=== PATIENT | female | born 1975 | race Caucasian/White ===

== ENCOUNTER 2017-10-08 07:52 | Inpatient (IN) | payer OTHER ==
[~2017-10-08] VITALS: Ht 167.6 cm; Wt 59.0 kg
--- NOTE | 2017-10-08 08:00 | NUR ---
BB FOR ABOMINAL PAIN, 05/30, NONRADIATING, PATIENT REPORTED NAUSEA AND VOMITTING. PATIENT IS AFEBRILE. SKIN IS WARM TO TOUCH AND NON DIAPHORETIC. VSS AT THIS TIME. RAY AT BEDSIDE.
[2017-10-08] MEDS ORDERED: MORPHINE SULFATE INJ 4 MG/ML DISP.SYRIN ONE (08:16)
[2017-10-08] MEDS ORDERED: ONDANSETRON HCL/PF 4 MG/2 ML VIAL ONE ×3 (08:16→22:42)
[2017-10-08] MEDS ORDERED: ONDANSETRON HCL/PF 4 MG/2 ML VIAL IVP ONE ×2 (08:30→11:00)
[2017-10-08] MEDS ORDERED: MORPHINE SULFATE INJ 2 MG/ML DISP.SYRIN IV ONE ×2 (08:30→10:00)
[2017-10-08] MEDS ORDERED: IV NS 0.9% 1,000 ML BAG IV ONE ×2 (08:30→11:30)
[2017-10-08 08:41] LABS: BASOPHILS % (AUTO) 0.1 % (0.0-2.0); EOSINOPHILS # (AUTO) 0.2 /CMM (0.0-0.7); EOSINOPHILS % (AUTO) 2.2 % (0.0-6.0); HEMATOCRIT 41 % (33-45); HEMOGLOBIN 13.6 g/dL (11.5-14.8); LYMPHOCYTES # (AUTO) 0.4 /CMM (0.8-4.8); LYMPHOCYTES % (AUTO) 4.3 % (20.0-44.0); MEAN CORPUSCULAR HEMOGLOBIN 31 PG (26.0-33.0); MEAN CORPUSCULAR HGB CONC 33 g/dl (31.0-36.0); MEAN CORPUSCULAR VOLUME 94 fL (82-100); MONOCYTES # (AUTO) 0.4 /CMM (0.1-1.30); MONOCYTES % (AUTO) 4.7 % (2.0-12.0); NEUTROPHILS # (AUTO) 8.2 /CMM (1.8-8.9); NEUTROPHILS % (AUTO) 88.7 % (43.0-81.0); PLATELET COUNT (AUTO) 209 /CMM (150-450); RDW COEFFICIENT OF VARIATION 12.4 (11.5-15.0); RED BLOOD CELL COUNT(AUTO) 4.41 MIL/uL (4.0-5.2); WHITE BLOOD COUNT (AUTO) 9.3 K/uL (4.3-11.0)
[2017-10-08 08:52] LABS: CREATININE 0.8 mg/dL (0.6-1.3); POTASSIUM 3.8 mmol/L (3.5-5.1)
[2017-10-08 09:05] LABS: ALBUMIN 4.2 g/dL (3.4-5.0); BILIRUBIN,DIRECT 0.1 mg/dL (0.0-0.2); BILIRUBIN,TOTAL 0.3 mg/dL (0.2-1.0); TOTAL PROTEIN, SERUM 7.5 g/dL (6.4-8.2)
[2017-10-08 09:27] LABS: APPEARANCE,URINE Clear (CLEAR); BILIRUBIN,URINE SMALL (NEGATIVE); BLOOD, URINE Small Ery/uL (NEGATIVE); COLOR,URINE Yellow (YELLOW); KETONES,URINE 80 (NEGATIVE); LEUKOCYTE ESTERASE ,URINE Negative (NEGATIVE); NITRITE, URINE Negative (NEGATIVE); PH,URINE 5.5 (5.0-8.0); PROTEIN,URINE Negative (NEGATIVE); UGLUCOSE Negative (NEGATIVE); UROBILINOGEN,URINE 0.2 EU/dL (0.2)
[2017-10-08 09:37] LABS: BACTERIA,URINE Few /HPF (None Seen); SQUAMOUS EPITHELIAL CELL,UR Few /HPF (None Seen)
[2017-10-08] MEDS ORDERED: MORPHINE SULFATE INJ 2 MG/ML DISP.SYRIN ONE (09:52)
--- NOTE | 2017-10-08 09:55 | NUR ---
PATIENT WAS TAKEN TO CT
[2017-10-08] MEDS ORDERED: IOHEXOL-300 100 ML VIAL IV ONE (09:57)
[2017-10-08] MEDS ORDERED: IV NS 0.9% 250 ML IV ONE (09:57)
--- NOTE | 2017-10-08 10:41 | NUR ---
SURGERY ON-CALL, DR RAIN CALLED FOR CONSULT
--- NOTE | 2017-10-08 10:45 | NUR ---
PANEL ON-CALL PAGED
[2017-10-08] MEDS ORDERED: CEFOXITIN 2 G in IV D5W 50 ML IV SCH (11:00)
--- NOTE | 2017-10-08 11:05 | NUR ---
REPORT GIVEN TO JANA BAÑUELOS FOR PJ MS [id number]
[2017-10-08] MEDS ORDERED: IV NS 0.9% 1,000 ML IV SCH (11:30)
[2017-10-08] MEDS ORDERED: MAGNESIUM HYDROXIDE 30 ML UDC PO PRN (11:30)
[2017-10-08] MEDS ORDERED: ACETAMINOPHEN 325 MG TABLET PO PRN (11:30)
[2017-10-08] MEDS ORDERED: ONDANSETRON HCL/PF 4 MG/2 ML VIAL IVP PRN (11:30)
[2017-10-08] MEDS ORDERED: MAG HYDROX/AL HYDROX/SIMETH 30 ML UDC PO PRN (11:30)
[2017-10-08] MEDS ORDERED: Z GUARD REMEDY 2 OZ OINT TP PRN (11:30)
[2017-10-08] MEDS ORDERED: ZOLPIDEM TARTRATE 5 MG TABLET PO PRN (11:30)
[2017-10-08] MEDS ORDERED: HYDROCODONE/APAP 5/325MG 1 EACH TABLET PO PRN (11:30)
--- NOTE | 2017-10-08 11:38 | NUR ---
PATIENT TRANSPORTED TO MS. VSS. NEEDS ATTENDED
[2017-10-08 11:39] LABS: PROTHROMBIN TIME 10.4 SECS (9.5-12.7)
--- NOTE | 2017-10-08 11:50 | NUR ---
RECEIVED PT FROM ER. NO SOB OR DISTRESS NOTED AT THIS TIME. PATIENT REPORTS MINIMAL, TOLERABLE PAIN. PATIENT ORIENTED TO ROOM AND CALL LIGHT. VITALS CHECKED AND RECORDED. PT SKIN INTACT, NO NEED FOR PICTURES. BED IN A LOW POSITION, CALL LIGHT WITHIN PATIENT REACH. WILL CONTINUE TO MONITOR.
--- NOTE | 2017-10-08 11:57 | NUR ---
RECEIVED CALL FROM LAB OF LACTIC ACID LEVEL OF 2.4. PT CURRENTLY RECEIVING BOLUS. CALLED DR BERGMAN VIA [facility] TO REPORT LAB VALUE. WAITING FOR RETURN CALL.
[2017-10-08 11:58] VITALS: BP 110/62
--- NOTE | 2017-10-08 12:01 | NUR ---
CALLED PHARMACY TO VERIFY MEDS THERE ARE MULTIPLE OF THE SAME ABX ORDERED. PHARMACY STATES THEY ARE WORKING ON THE ISSUE AND WILL GET THE ORDERS SORTED OUT SHORTLY. PT CURRENTLY INFUSING NS BOLUS.
[2017-10-08] MEDS ORDERED: IV NS 0.9% 1,000 ML IV PRN (12:30)
[2017-10-08] MEDS: MORPHINE SULFATE INJ 2 MG/ML DISP.SYRIN IV PRN ×2 (12:37→16:17)
[2017-10-08] MEDS ORDERED: CEFOXITIN 1 G in IV D5W 50 ML IV SCH (13:00)
[2017-10-08] MEDS ORDERED: MONT10TA22 PO (13:03)
[2017-10-08] MEDS ORDERED: TOPI100T PO (13:03)
[2017-10-08] MEDS ORDERED: FLUT9.9S NS (13:03)
[2017-10-08] MEDS ORDERED: LORA10TA68 PO (13:03)
--- NOTE | 2017-10-08 13:06 | NUR ---
SPOKE TO DR BERGMAN ABOUT PT HOME MEDS AND LACTIC ACID. STATES TO REDRAW AFTER THE FIRST LITER INFUSES AND TO RESTART HOME MEDS. WILL CARRY OUT ORDERS.
[2017-10-08] MEDS ORDERED: OXYMETAZOLINE HCL NASAL SPRAY 30 ML BOTTLE NS PRN (13:17)
[2017-10-08] MEDS: METRONIDAZOLE 500MG/ NS 100ML 500 MG in PREMIX 1 EA IV SCH ×2 (13:42→21:00)
--- NOTE | 2017-10-08 14:36 | NUR ---
RECEIVED A CALL FROM PHARMACY THAT THE PATIENT TYPE AND SCREEN HAS A POSITIVE ANTIBODY THAT WILL NEED TO BE SENT OUT TO ID SO A UNIT CAN BE PREPARED. WILL INFORM SURGEON WHEN HE COMES. Addendum: 10/08/17 at 1924 by SARMAD BACK RN RECEIVED CALL FROM LAB NOT PHARMACY
[2017-10-08 16:00] VITALS: BP 96/54
[2017-10-08] MEDS ORDERED: diphenhydrAMINE HCL 50 MG/ML VIAL IV PRN (18:00)
--- NOTE | 2017-10-08 19:22 | NUR ---
NO SIGNIFICANT CHANGES IN PATIENT CONDITION THROUGHOUT THE SHIFT. NO SOB OR DISTRESS NOTED AT THIS TIME. PATIENT REPORTS TOLERABLE PAIN. BED IN A LOW POSITION, CALL LIGHT WITHIN PATIENT REACH. REPORT GIVEN TO ART OLIVA.
--- NOTE | 2017-10-08 19:30 | NUR ---
MS RN NOTE RECEIVED PATIENT AWAKE AND ALERT IN BED. DENIES ANY PAIN OR DISCOMFORT AT THIS TIME. IV SITE INTACT, WITH NO S/S OF INFECTION NOTED. PATIENT HAS BEEN NPO SINCE YESTERDAY FOR POSSIBLE PROCEDURE. WAITING FOR TO SEE PATIENT. BED LOCKED AND IN LOWEST POSITION. SIDE RAILS UP, CALL LIGHT WITHIN REACH. WILL CONTINUE TO MONITOR.
[2017-10-08 20:00] VITALS: BP 97/64
[2017-10-08] MEDS ORDERED: CEFTRIAXONE 1 G in IV D5W 50 ML IV SCH (20:00)
--- NOTE | 2017-10-08 20:00 | NUR ---
MS RN NOTE AT BEDSIDE. EXPLAINED PROCEDURE TO PATIENT FOR A LAPAROSCOPIC APPENDECTOMY. PATIENT VERBALIZED UNDERSTANDING. CONSENT SIGNED. PATIENT STABLE. WILL CONTINUE TO MONITOR.
[2017-10-08 20:40] VITALS: BP 103/65
[2017-10-08] MEDS ORDERED: ROCURONIUM BROMIDE 50 MG/5 ML ONE (20:42)
[2017-10-08] MEDS ORDERED: FENTANYL PF 100MCG/2ML AMPUL ONE ×2 (20:42→22:41)
[2017-10-08] MEDS ORDERED: MIDAZOLAM HCL 2 MG/2ML VIAL ONE (20:42)
[2017-10-08] MEDS ORDERED: BUPIVACAINE 0.5 % PF 150 MG/30 ML VIAL ONE ×2 (20:43→21:27)
[2017-10-08] MEDS ORDERED: SCOPOLAMINE HBR 1 EA PATCH.TD72 TD ONE (20:48)
--- NOTE | 2017-10-08 21:00 | NUR ---
MS RN NOTE PATIENT LEFT FOR SURGERY IN STABLE CONDITION.
[2017-10-08 22:00] VITALS: BP 104/78
[2017-10-08] MEDS ORDERED: TOPIRAMATE 100 MG TABLET PO SCH (22:00)
[2017-10-08] MEDS ORDERED: IV LR 1000 ML 1,000 ML IV PRN (23:30)
--- NOTE | 2017-10-08 23:30 | NUR ---
MS RN NOTE PATIENT BACK FROM SURGERY IN STABLE CONDITION. 3 INCISIONS ON ABDOMEN. NO S/S OF INFECTION NOTED. NEW ORDERS RECEIVED AND CARRIED OUT. WILL CONTINUE TO MONITOR.
[2017-10-08] MEDS ORDERED: CEFAZOLIN 1 GM ONE (23:49)
[2017-10-09] MEDS ORDERED: MORPHINE SULFATE INJ 2 MG/ML DISP.SYRIN ONE ×2 (00:32→04:24)
[2017-10-09] MEDS: MORPHINE SULFATE INJ 2 MG/ML DISP.SYRIN IV PRN ×4 (00:34→13:56)
[2017-10-09] MEDS: CEFAZOLIN 1 GM in IV D5W 50 ML IV SCH ×2 (00:34→05:17)
[2017-10-09] MEDS ORDERED: CEFAZOLIN 1 GM ONE (04:04)
[2017-10-09] MEDS: METRONIDAZOLE 500MG/ NS 100ML 500 MG in PREMIX 1 EA IV SCH ×2 (04:23→12:09)
--- NOTE | 2017-10-09 06:35 | NUR ---
MS RN NOTE PATIENT RESTING COMFORTABLY. VS WNL. ALL NEEDS MET AND ATTENDED TO. IV SITE INTACT, WITH FLUIDS RUNNING ORDERED. WILL ENDORSE TO DAY SHIFT FOR PJ.
[2017-10-09 06:43] LABS: BASOPHILS % (AUTO) 0.1 % (0.0-2.0); HEMATOCRIT 33 % (33-45); LYMPHOCYTES # (AUTO) 0.4 /CMM (0.8-4.8); MEAN CORPUSCULAR HEMOGLOBIN 31 PG (26.0-33.0); MEAN CORPUSCULAR HGB CONC 33 g/dl (31.0-36.0); MEAN CORPUSCULAR VOLUME 93 fL (82-100); MONOCYTES # (AUTO) 0.2 /CMM (0.1-1.30); MONOCYTES % (AUTO) 2.3 % (2.0-12.0); NEUTROPHILS # (AUTO) 6.8 /CMM (1.8-8.9); NEUTROPHILS % (AUTO) 92.6 % (43.0-81.0); PLATELET COUNT (AUTO) 147 /CMM (150-450); RDW COEFFICIENT OF VARIATION 12.4 (11.5-15.0); RED BLOOD CELL COUNT(AUTO) 3.55 MIL/uL (4.0-5.2); WHITE BLOOD COUNT (AUTO) 7.3 K/uL (4.3-11.0)
[2017-10-09 07:02] LABS: CALCIUM, SERUM 7.6 mg/dL (8.5-10.1); CREATININE 0.7 mg/dL (0.6-1.3); MAGNESIUM 1.6 mg/dL (1.8-2.4); PHOSPHORUS 3.7 mg/dL (2.5-4.9); POTASSIUM 3.8 mmol/L (3.5-5.1)
--- NOTE | 2017-10-09 07:20 | NUR ---
PATIENT RESTING COMFORTABLY IN BED. NO SOB OR DISTRESS NOTED AT THIS TIME. PATIENT REPORTS TOLERABLE PAIN. BED IN A LOW POSITION, CALL LIGHT WITHIN PATIENT REACH.
[2017-10-09 08:00] VITALS: BP 98/63
[2017-10-09] MEDS ORDERED: DOCUSATE SODIUM 100 MG CAPSULE PO PRN (08:30)
[2017-10-09] MEDS ORDERED: FLUTICASONE PROPIONATE 16 GM BOTTLE NS SCH (09:00)
[2017-10-09] MEDS ORDERED: MONTELUKAST SODIUM (10MG) 10 MG TABLET PO SCH (09:00)
[2017-10-09] MEDS ORDERED: LORATADINE 10 MG TABLET PO SCH (09:00)
[2017-10-09] MEDS ORDERED: PANTOPRAZOLE 40 MG VIAL IV SCH (09:00)
--- NOTE | 2017-10-09 09:05 | NUR ---
CALLED DR PASCUAL'S OFFICE TO CLARIFY IF THE MD WANTED TO CONTINUE THE FLAGYL AND THUYN. LEFT A MESSAGE, WAITING FOR MD OR OFFICE TO CALL BACK.
--- NOTE | 2017-10-09 09:53 | NUR ---
DR BERGMAN ON FLOOR. STATES PT CAN SKIP THE LAST DOSES OF ABX THEY ARE NOT NEEDED AND THE PATIENT WILL BE DISCHARGED.
[2017-10-09] MEDS ORDERED: Magnesium 1GM/D5W 100ML PREMIX 100 ML IV SCH (12:00)
[2017-10-09] MEDS: Magnesium 1GM/D5W 100ML PREMIX 100 ML IV SCH ×2 (12:03→13:21)
[2017-10-09] MEDS ORDERED: ONDA4TAB5 PO (12:22)
[2017-10-09] MEDS ORDERED: HYDR-552 PO (12:22)
== END 2017-10-09 14:45 | disposition home or self-care (01) | DRG 336 ==
LOC: ER 07:54 → MEDSG2 11:15
PROVIDERS: ADMIT Internal Medicine; ATTEND Internal Medicine
PROC: 0DTJ4ZZ Resection of Appendix, Percutaneous Endoscopic Approach (ICD-10-PCS; principal; 2017-10-08 20:30)
PROC: 0UN04ZZ Release Right Ovary, Percutaneous Endoscopic Approach (ICD-10-PCS; principal; 2017-10-08 20:30)
PROC: 0DNE4ZZ Release Large Intestine, Percutaneous Endoscopic Approach (ICD-10-PCS; principal; 2017-10-08 20:30)
DX: K35.80 Unspecified acute appendicitis (principal); E87.2 Acidosis; Z88.1 Allergy status to other antibiotic agents; Z90.5 Acquired absence of kidney; Z98.890 Other specified postprocedural states; R51 Headache; N83.201 Unspecified ovarian cyst, right side
CPT/HCPCS: 36415; 71010-TC; 80048-TC; 80076-TC; 81000-TC; 83605-TC; 83690-TC; 83735-TC; 84100-TC; 84703-TC; 85025-TC; 85730-TC; 86850-TC; 87040-TC; 87086-TC; 88304-TC; 88305-TC; A4216; A4606; C9113; J0690; J0694; J0696; J1100; J1200; J1885; J2250; J2270; J2405; J2704; J2710; J3010; J3475; J3490; J7030; J7050; J7060; J7120; Q9967; Z7610

== ENCOUNTER 2017-10-09 22:54 | Inpatient (IN) | payer OTHER ==
[~2017-10-09] VITALS: Ht 167.6 cm; Wt 65.3 kg
[~2017-10-09 22:54] MED LIST: FLUT9.9S NS; HYDR-552 PO; LORA10TA68 PO; MONT10TA22 PO; ONDA4TAB5 PO; TOPI100T PO
[2017-10-09] MEDS ORDERED: MORPHINE SULFATE INJ 2 MG/ML DISP.SYRIN IV ONE (23:00)
[2017-10-09] MEDS ORDERED: ONDANSETRON HCL/PF 4 MG/2 ML VIAL IVP ONE (23:00)
[2017-10-09] MEDS ORDERED: IV NS 0.9% 1,000 ML BAG IV ONE (23:00)
--- NOTE | 2017-10-09 23:00 | NUR ---
TO BED 5 AMBULATORY C/O ABDOMINAL PAIN S/P APPENDECTOMY 10/08/17. PT AAOX4 NO ACUTE DISTRESS NOTED, RESP EVEN AND UNLABORED. ER MD AT BEDSIDE TO EVAL PT WITH ORDERS RECEIVED. STARTED SL 20G TO LAC, BLOOD DRAWN AND SENT TO LAB.
[2017-10-09] MEDS ORDERED: ONDANSETRON HCL/PF 4 MG/2 ML VIAL ONE (23:05)
[2017-10-09] MEDS ORDERED: MORPHINE SULFATE INJ 4 MG/ML DISP.SYRIN ONE (23:05)
--- NOTE | 2017-10-09 23:09 | NUR ---
RN AT BEDSIDE TO MEDICATE PT.
[2017-10-09 23:20] LABS: BASOPHILS % (AUTO) 0.3 % (0.0-2.0); EOSINOPHILS # (AUTO) 0.3 /CMM (0.0-0.7); EOSINOPHILS % (AUTO) 4.2 % (0.0-6.0); HEMATOCRIT 35 % (33-45); HEMOGLOBIN 11.6 g/dL (11.5-14.8); LYMPHOCYTES # (AUTO) 0.8 /CMM (0.8-4.8); LYMPHOCYTES % (AUTO) 10.5 % (20.0-44.0); MEAN CORPUSCULAR HEMOGLOBIN 31 PG (26.0-33.0); MEAN CORPUSCULAR HGB CONC 34 g/dl (31.0-36.0); MEAN CORPUSCULAR VOLUME 93 fL (82-100); MONOCYTES # (AUTO) 0.6 /CMM (0.1-1.30); MONOCYTES % (AUTO) 7.1 % (2.0-12.0); NEUTROPHILS % (AUTO) 77.9 % (43.0-81.0); PLATELET COUNT (AUTO) 190 /CMM (150-450); RDW COEFFICIENT OF VARIATION 12.7 (11.5-15.0); WHITE BLOOD COUNT (AUTO) 7.7 K/uL (4.3-11.0)
[2017-10-09 23:31] LABS: CALCIUM, SERUM 8.2 mg/dL (8.5-10.1); POTASSIUM 3.3 mmol/L (3.5-5.1)
[2017-10-09 23:36] LABS: PROTHROMBIN TIME 10.4 SECS (9.5-12.7)
[2017-10-09 23:37] LABS: ALBUMIN 3.4 g/dL (3.4-5.0); BILIRUBIN,TOTAL 0.2 mg/dL (0.2-1.0); TOTAL PROTEIN, SERUM 6.4 g/dL (6.4-8.2)
--- NOTE | 2017-10-09 23:43 | NUR ---
PT STILL C/O ABDOMINAL PAIN 04/29. ER MD MADE AWARE WITH ORDERS RECEIVED. RN TO MEDICATE PT.
[2017-10-10] MEDS ORDERED: HYDROMORPHONE 1 MG/1 ML DISP.SYRIN IV ONE
[2017-10-10] MEDS ORDERED: HYDROMORPHONE INJ 2 MG/ML DISP.SYRIN ONE ×3 (00:01→06:33)
--- NOTE | 2017-10-10 00:04 | NUR ---
CARO QUARLES SPOKE TO DR. HOSKINS REGARDING PT ADMISSION.
--- NOTE | 2017-10-10 00:08 | NUR ---
DR. GATO LOWE AT BEDSIDE TO [place] PT.
--- NOTE | 2017-10-10 00:10 | NUR ---
DILAUDID 1mg ADMINISTERED IVP ORDERED. HAD TO OBTAIN MED FROM [facility]; NO DILAUDID IN ER OMNICELL. DILAUDID 2mg ORDER DC'D.
--- NOTE | 2017-10-10 00:20 | NUR ---
SIMRAN FORD AT BEDSIDE.
--- NOTE | 2017-10-10 00:21 | NUR ---
M/S 110
--- NOTE | 2017-10-10 00:24 | NUR ---
REPORT CALLED TO M/S JANA BOURGEOIS. PENDING HOSPITAL ADMISSION.
--- NOTE | 2017-10-10 01:05 | NUR ---
RN OPENING NOTES: RECEIVED AND ADMITTED A MED SURG PATIENT FROM ER VIA [facility]; AWAKE AND ALERT NOT IN APPARENT DISTRESS ON ROOM AIR. IV ACCESS ON LAC G20 INTACT AND PATENT KEPT SL AT THIS TIME. PATIENT VERBALIZED HER PAIN LEVEL HAS BEEN BETTER RATED AT A 2/10. DENIES SKIN ISSUES, NOTED WITH 3 LAP SITES ON ABDOMEN , CLEAN AND INTACT WITHOUT BLEEDING NOTED. SAFETY MEASURES ENSURED. CALL LIGHT WITHIN REACH AT ALL TIMES. TO MONITOR AND MANAGE PAIN.
[2017-10-10 01:50] VITALS: BP 104/57
[2017-10-10] MEDS: HYDROMORPHONE INJ 2 MG/ML DISP.SYRIN IV PRN ×6 (02:46→23:54)
[2017-10-10 04:00] VITALS: BP 91/54
[2017-10-10] MEDS ORDERED: ONDANSETRON HCL/PF 4 MG/2 ML VIAL ONE (06:39)
[2017-10-10] MEDS: ONDANSETRON HCL/PF 4 MG/2 ML VIAL IVP PRN ×3 (06:41→20:35)
--- NOTE | 2017-10-10 06:47 | NUR ---
RN CLOSING NOTES: PATIENT WITH OCCASIONAL COMPLAINTS OF ABDOMINAL PAIN WITH DILAUDID PRN NOTED TO BE EFFECTIVE WITH PAIN MANAGEMENT PER PATIENT. ZOFRAN GIVEN WITH WITH DILAUDID DOSE. PATIENT REFUSING SCD'S AT THIS TIME. SAFETY MEASURES ENSURED. CONTINUOUSLY MONITORED, NOT IN APPARENT DISTRESS. ENDORSED TO AM SHIFT RN.
--- NOTE | 2017-10-10 07:30 | NUR ---
MS RN AM NOTES: PT IN BED, AAO X 4, ON ROOM AIR, NO SOB, RESPIRATION UNLABORED, IV ACCESS ON LAC G20 FLUSHES WELL, SITE CLEAR, RECEIVED PAIN MEDS A WHILE AGO, DENIES SKIN ISSUES, NOTED WITH 3 LAP SITES ON ABDOMEN , CLEAN AND INTACT WITHOUT BLEEDING NOTED. SAFETY MEASURES ENSURED. CALL LIGHT WITHIN REACH AT ALL TIMES. DISCUSSED POC. VERBALIZED UNDERSTANDING. WILL CONTINUE TO MONITOR AND MANAGE PAIN.
[2017-10-10 08:00] VITALS: BP 99/55
[2017-10-10] MEDS: MONTELUKAST SODIUM (10MG) 10 MG TABLET PO SCH (09:00)
[2017-10-10] MEDS: LORATADINE 10 MG TABLET PO SCH (09:00)
--- NOTE | 2017-10-10 09:30 | NUR ---
MS RN NOTES ADMINISTERED DUE MEDS.
--- NOTE | 2017-10-10 11:30 | NUR ---
MS RN NOTES SEEN BY DR. BERGMAN EARLIER. ORDERED FOR URINALYSIS. SPECIMEN COLLECTED AND SENT TO LAB.
[2017-10-10 15:50] LABS: APPEARANCE,URINE CLEAR (CLEAR); BILIRUBIN,URINE NEGATIVE (NEGATIVE); BLOOD, URINE 2+ Ery/uL (NEGATIVE); COLOR,URINE YELLOW (YELLOW); KETONES,URINE NEGATIVE (NEGATIVE); LEUKOCYTE ESTERASE ,URINE NEGATIVE (NEGATIVE); NITRITE, URINE NEGATIVE (NEGATIVE); PH,URINE 6.5 (5.0-8.0); PROTEIN,URINE NEGATIVE (NEGATIVE); UGLUCOSE NEGATIVE (NEGATIVE); UROBILINOGEN,URINE 0.2 EU/dL (0.2)
[2017-10-10 16:00] VITALS: BP 125/84
[2017-10-10 16:01] LABS: BACTERIA,URINE Rare /HPF (None Seen); SQUAMOUS EPITHELIAL CELL,UR Moderate /HPF (None Seen); WBC,URINE 0-2 /HPF (0-3)
--- NOTE | 2017-10-10 16:45 | NUR ---
Patient lives at home with spouse. She is ambulatory and independent with adl's. No dc planning needs identified at this time. will provide ride home when discharge. Addendum: 10/10/17 at 1646 by FORREST BUSTOS RN Amended: Links added.
--- NOTE | 2017-10-10 18:39 | NUR ---
MS RN CLOSING NOTES: PT IN BED, RESTING COMFORTABLY, AAO X 4, ON ROOM AIR, NO SOB, RESPIRATION UNLABORED, IV ACCESS ON LAC G20 FLUSHES WELL, SITE CLEAR, RECEIVED PAIN MEDS ORDERED, OCCASIONAL ABDOMINAL PAIN, NOTED WITH 3 LAP SITES ON ABDOMEN , CLEAN AND INTACT WITHOUT BLEEDING NOTED. SAFETY MEASURES ENSURED. CALL LIGHT WITHIN REACH AT ALL TIMES. ALL NEEDS MET, NO OTHER SIGNIFICANT CHANGE IN CONDITION. WILL ENDORSE TO NEXT SHIFT FOR PJ.
--- NOTE | 2017-10-10 19:44 | NUR ---
RN OPENING NOTE RECEIVED PATIENT IN THE BED WITH A VISITOR BY A BEDSIDE, PATIENT STATED THAT SHE IS IN PAIN 7/10, NO SOB, NO ACUTE DISTRESS NOTED, LEFT AC GAUGE 20 SITE IS INTACT, GOOD BLOOD RETURN, ADMINISTERED PAIN MED ORDERED, WILL CONTINUE TO MONITOR
[2017-10-10 20:00] VITALS: BP 115/75
[2017-10-10] MEDS: TOPIRAMATE 100 MG TABLET PO SCH (22:00)
[2017-10-10] MEDS ORDERED: PROCHLORPERAZINE EDISYLATE 10 MG/2 ML VIAL IM PRN (23:30)
[2017-10-10] MEDS ORDERED: METOCLOPRAMIDE HCL 10 MG/2 ML VIAL ONE (23:39)
[2017-10-10] MEDS: METOCLOPRAMIDE HCL 10 MG/2 ML VIAL IV PRN (23:40)
[2017-10-11] MEDS: HYDROMORPHONE INJ 2 MG/ML DISP.SYRIN IV PRN ×5 (03:38→22:11)
[2017-10-11] MEDS ORDERED: METOCLOPRAMIDE HCL 10 MG TABLET ONE (05:03)
[2017-10-11] MEDS ORDERED: METOCLOPRAMIDE HCL 10 MG/2 ML VIAL ONE (05:05)
[2017-10-11] MEDS: METOCLOPRAMIDE HCL 10 MG/2 ML VIAL IV PRN ×2 (06:47→18:35)
[2017-10-11 08:00] VITALS: BP 115/66
[2017-10-11] MEDS: HYDROCODONE/APAP 5/325MG 1 EACH TABLET PO PRN (08:03)
[2017-10-11] MEDS: MONTELUKAST SODIUM (10MG) 10 MG TABLET PO SCH (08:26)
[2017-10-11] MEDS: LORATADINE 10 MG TABLET PO SCH (08:26)
--- NOTE | 2017-10-11 09:30 | NUR ---
MS RN NOTES ADMINISTERED DUE MEDS.
[2017-10-11] MEDS: ONDANSETRON HCL/PF 4 MG/2 ML VIAL IV PRN ×3 (10:18→20:20)
[2017-10-11] MEDS: IV D5/0.45 NACL 1,000 ML IV PRN ×2 (10:22→20:20)
[2017-10-11 10:53] LABS: BASOPHILS % (AUTO) 0.3 % (0.0-2.0); EOSINOPHILS # (AUTO) 0.3 /CMM (0.0-0.7); EOSINOPHILS % (AUTO) 4.1 % (0.0-6.0); HEMATOCRIT 34 % (33-45); HEMOGLOBIN 11.4 g/dL (11.5-14.8); LYMPHOCYTES # (AUTO) 0.7 /CMM (0.8-4.8); LYMPHOCYTES % (AUTO) 12.3 % (20.0-44.0); MEAN CORPUSCULAR HEMOGLOBIN 31 PG (26.0-33.0); MEAN CORPUSCULAR HGB CONC 34 g/dl (31.0-36.0); MEAN CORPUSCULAR VOLUME 93 fL (82-100); MONOCYTES # (AUTO) 0.6 /CMM (0.1-1.30); MONOCYTES % (AUTO) 9.1 % (2.0-12.0); NEUTROPHILS # (AUTO) 4.5 /CMM (1.8-8.9); NEUTROPHILS % (AUTO) 74.2 % (43.0-81.0); PLATELET COUNT (AUTO) 189 /CMM (150-450); RDW COEFFICIENT OF VARIATION 12.3 (11.5-15.0); RED BLOOD CELL COUNT(AUTO) 3.65 MIL/uL (4.0-5.2); WHITE BLOOD COUNT (AUTO) 6.1 K/uL (4.3-11.0)
[2017-10-11 11:09] LABS: ALBUMIN 3.2 g/dL (3.4-5.0); BILIRUBIN,DIRECT 0.1 mg/dL (0.0-0.2); BILIRUBIN,TOTAL 0.3 mg/dL (0.2-1.0); CALCIUM, SERUM 8.3 mg/dL (8.5-10.1); CREATININE 0.8 mg/dL (0.6-1.3); MAGNESIUM 1.8 mg/dL (1.8-2.4); PHOSPHORUS 3.2 mg/dL (2.5-4.9); POTASSIUM 3.5 mmol/L (3.5-5.1); TOTAL PROTEIN, SERUM 6.3 g/dL (6.4-8.2)
--- NOTE | 2017-10-11 11:30 | NUR ---
MS RN NOTES SEEN BY DR. BERGMAN EARLIER. LEFT ARM IV ACCESS INFILTRATED. IV RESTARTED ON L WRIST G 22 GOOD BLOOD RETURN STARTED ON D5 1/2NS AT 100 ML/HR.
[2017-10-11] MEDS ORDERED: BISACODYL SUPP (10 MG) 10 MG/SUPP.RECT SUPP.RECT RC PRN (13:00)
[2017-10-11] MEDS ORDERED: MAGNESIUM HYDROXIDE 30 ML UDC PO PRN (13:00)
[2017-10-11] MEDS ORDERED: IV NS 0.9% 250 ML IV ONE (13:50)
[2017-10-11] MEDS ORDERED: IOHEXOL-300 100 ML VIAL IV ONE (13:50)
[2017-10-11] MEDS ORDERED: CT SWABBABLE VALVE TRANS SET 1 EA INFUS.SET MC ONE (13:50)
[2017-10-11 16:00] VITALS: BP 121/73
[2017-10-11] MEDS ORDERED: MAGNESIUM CITRATE 296 ML BOTTLE PO ONE (18:00)
--- NOTE | 2017-10-11 18:22 | NUR ---
MS RN CLOSING NOTES: PT IN BED, RESTING COMFORTABLY, AAO X 4, AT BEDSIDE, ON ROOM AIR, NO SOB, RESPIRATION UNLABORED, IV ACCESS ON L WRIST G 22 WITH D5 1/2 NS INFUSING WELL, SITE CLEAR, RECEIVED PAIN MEDS ORDERED, OCCASIONAL ABDOMINAL PAIN, NOTED WITH 3 LAP SITES ON ABDOMEN , CLEAN AND INTACT WITHOUT BLEEDING NOTED. SAFETY MEASURES ENSURED. CALL LIGHT WITHIN REACH AT ALL TIMES. ALL NEEDS MET, NO OTHER SIGNIFICANT CHANGE IN CONDITION. WILL ENDORSE TO NEXT SHIFT FOR PJ.
[2017-10-11 20:00] VITALS: BP 105/59
[2017-10-11] MEDS ORDERED: PANTOPRAZOLE 40 MG VIAL ONE (21:59)
[2017-10-11] MEDS ORDERED: HYDROMORPHONE INJ 2 MG/ML DISP.SYRIN ONE (22:07)
[2017-10-11] MEDS: PANTOPRAZOLE 40 MG VIAL IV SCH (22:10)
[2017-10-11] MEDS: TOPIRAMATE 100 MG TABLET PO SCH (22:10)
[2017-10-12] MEDS ORDERED: HYDROMORPHONE INJ 2 MG/ML DISP.SYRIN ONE ×2 (02:12→06:54)
[2017-10-12] MEDS: ONDANSETRON HCL/PF 4 MG/2 ML VIAL IV PRN ×4 (02:29→21:50)
[2017-10-12] MEDS: HYDROMORPHONE INJ 2 MG/ML DISP.SYRIN IV PRN ×6 (02:30→21:50)
[2017-10-12 04:00] VITALS: BP 107/61
[2017-10-12 06:33] LABS: BASOPHILS % (AUTO) 0.4 % (0.0-2.0); EOSINOPHILS # (AUTO) 0.3 /CMM (0.0-0.7); EOSINOPHILS % (AUTO) 7.8 % (0.0-6.0); HEMATOCRIT 33 % (33-45); HEMOGLOBIN 11.2 g/dL (11.5-14.8); LYMPHOCYTES # (AUTO) 1.2 /CMM (0.8-4.8); MEAN CORPUSCULAR HEMOGLOBIN 31 PG (26.0-33.0); MEAN CORPUSCULAR HGB CONC 34 g/dl (31.0-36.0); MEAN CORPUSCULAR VOLUME 93 fL (82-100); MONOCYTES # (AUTO) 0.5 /CMM (0.1-1.30); MONOCYTES % (AUTO) 12.4 % (2.0-12.0); NEUTROPHILS # (AUTO) 2.2 /CMM (1.8-8.9); NEUTROPHILS % (AUTO) 51.4 % (43.0-81.0); PLATELET COUNT (AUTO) 194 /CMM (150-450); RDW COEFFICIENT OF VARIATION 12.1 (11.5-15.0); RED BLOOD CELL COUNT(AUTO) 3.57 MIL/uL (4.0-5.2); WHITE BLOOD COUNT (AUTO) 4.3 K/uL (4.3-11.0)
[2017-10-12] MEDS: IV D5/0.45 NACL 1,000 ML IV PRN (06:43)
[2017-10-12 06:53] LABS: ALBUMIN 3.1 g/dL (3.4-5.0); BILIRUBIN,DIRECT 0.1 mg/dL (0.0-0.2); BILIRUBIN,TOTAL 0.3 mg/dL (0.2-1.0); CALCIUM, SERUM 8.5 mg/dL (8.5-10.1); CREATININE 0.7 mg/dL (0.6-1.3); MAGNESIUM 1.9 mg/dL (1.8-2.4); PHOSPHORUS 3.4 mg/dL (2.5-4.9); POTASSIUM 3.5 mmol/L (3.5-5.1); TOTAL PROTEIN, SERUM 6.1 g/dL (6.4-8.2)
--- NOTE | 2017-10-12 07:37 | NUR ---
MS RN NOTES RECEIVED PT ON BED WATCHING TV. A/O X 4. HEALTH TEACHING ABOUT NPO STATUS DONE.ON ROOM AIR TOLERATING WELL. IV ACCESS ON LAC G20 DEXTROSE 5 AND 1/2 NS RUNNING WELL 100ML/HR INFUSING WELL. SIDE RAILS UP. CALL LIGHT WITHIN REACH. HEAD OF BED ELEVATED. WILL CONTINUE TO MONITOR PT CLOSELY.
[2017-10-12 08:00] VITALS: BP 107/63
[2017-10-12] MEDS: LORATADINE 10 MG TABLET PO SCH (08:53)
[2017-10-12] MEDS: MONTELUKAST SODIUM (10MG) 10 MG TABLET PO SCH (08:53)
[2017-10-12] MEDS ORDERED: NA PHOS,M-B/NA PHOS,DI-BA 1 EA ENEMA RC PRN (10:00)
[2017-10-12] MEDS: METOCLOPRAMIDE HCL 10 MG/2 ML VIAL IV PRN ×2 (10:37→18:39)
--- NOTE | 2017-10-12 10:45 | NUR ---
MS BATES NOTES PT REFUSED 20MG KDUR. EXPLAINED THE RISK AND BENEFITS OF THE DRUG. Addendum: 10/12/17 at 1524 by CONNER CHAKRABORTY RN KAYY PT.
--- NOTE | 2017-10-12 15:24 | NUR ---
MS RN NOTES PT WENT FOR HIDA PROCEDURE VIA WHEELCHAIR. PT CONDITION STABLE AT THIS TIME.
[2017-10-12 16:00] VITALS: BP 136/91
--- NOTE | 2017-10-12 18:56 | NUR ---
NM; HIDA SCAN WAS COMPLETED. TECH:RB.
[2017-10-12 20:00] VITALS: BP 113/58
[2017-10-12] MEDS: PANTOPRAZOLE 40 MG VIAL IV SCH (21:49)
[2017-10-12] MEDS: TOPIRAMATE 100 MG TABLET PO SCH (22:59)
[2017-10-13] MEDS: METOCLOPRAMIDE HCL 10 MG/2 ML VIAL IV PRN ×2 (00:53→07:09)
[2017-10-13] MEDS: HYDROMORPHONE INJ 2 MG/ML DISP.SYRIN IV PRN ×3 (00:53→07:09)
[2017-10-13] MEDS: ONDANSETRON HCL/PF 4 MG/2 ML VIAL IV PRN ×2 (03:50→10:19)
[2017-10-13 04:00] VITALS: BP 108/66
--- NOTE | 2017-10-13 07:30 | NUR ---
RN MS NOTES PT IN BED, AWAKE, ALERT AND ORIENTED, STILL WITH COMPLAINT OF SLIGHT PAIN ON THE ABDOMEN, PAIN MEDICATION GIVEN BY METALWORKER NURSE, PT SEEN BY DR. ESPINOZA, CALL LIGHT WITHIN REACH, NEEDS ATTENDED.
--- NOTE | 2017-10-13 07:31 | NUR ---
RN NOTE SPOKE WITH DR ESPINOZA AND RECEIVED ORDERS TO ADVANCE DIET TO REGULAR DIET. WILL CONTACT [employer] TO GET BREAKFAST TRAY FOR PT AND ENDORSE TO AM RN.
--- NOTE | 2017-10-13 07:37 | NUR ---
RN NOTE PT REMAINS IN NO ACUTE DISTRESS IN BED. PT DID NOT HAVE ANY SIGNIFICANT CHANGE IN CONDITION DURING SHIFT. ALL NEEDS MET, ALL ORDERS CARRIED OUT. PT C/O PAIN AND NAUSEA AND DILAUDID 1MG GIVEN FOR PAIN, ZOFRAN 4MG/REGLAN 10MG GIVEN FOR NAUSEA. WILL ENDORSE CARE TO AM RN FOR CONTINUITY OF CARE.
[2017-10-13 08:00] VITALS: BP 115/69
[2017-10-13] MEDS: LORATADINE 10 MG TABLET PO SCH (08:47)
[2017-10-13] MEDS: MONTELUKAST SODIUM (10MG) 10 MG TABLET PO SCH (08:48)
[2017-10-13] MEDS: HYDROCODONE/APAP 5/325MG 1 EACH TABLET PO PRN (10:25)
--- NOTE | 2017-10-13 12:48 | NUR ---
RN MS NOTES PT AWAKE, SITTING IN BED, NOT IN DISTRESS, SEEN BY DR. BERGMAN, DISCHARGE ORDER GIVEN, DISCHARGE AND MEDICATION INSTRUCTIONS PROVIDED TO PT, VERBALIZED UNDERSTANDING, PRESCRIPTION GIVEN TO PT, BELONGINGS ACCOUNTED FOR, PICKED UP BY , LEFT IN STABLE CONDITION.
== END 2017-10-13 12:00 | disposition home or self-care (01) | DRG 445 ==
LOC: ER 22:56 → MEDSG1 10-10 00:55
DX: K80.00 Calculus of gallbladder with acute cholecystitis without obstruction (principal); E87.2 Acidosis; G35 Multiple sclerosis; G43.909 Migraine, unspecified, not intractable, without status migrainosus; E87.6 Hypokalemia; Z90.49 Acquired absence of other specified parts of digestive tract; Z90.5 Acquired absence of kidney; Z79.899 Other long term (current) drug therapy; Z87.19 Personal history of other diseases of the digestive system; Z88.1 Allergy status to other antibiotic agents; K59.00 Constipation, unspecified
CPT/HCPCS: 36415; 74000-TC; 76700-TC; 76856-TC; 78226; 80048-TC; 80076-TC; 81000-TC; 83605-TC; 83690-TC; 83735-TC; 84100-TC; 85025-TC; 85730-TC; 87040-TC; A9537; C9113; J0780; J1170; J2270; J2405; J2765; J3490; J7030; J7050; J8597; Q9967